=== PATIENT | male | born 1940 | race Caucasian/White ===

== ENCOUNTER 2018-01-12 09:14 | Outpatient (CLI) | payer MEDICARE, BC ==
--- NOTE | 2018-01-12 13:51 | PET ---
PET CT: HISTORY: 77-year-old male with metastatic melanoma, metastatic to right upper back. Status post radical excisi on including latissimus muscle strip with a 2 cm margin on 12/23/17. Patient had an initial melanoma of the back in 2006. 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 Exam requested for staging/restaging. TECHNIQUE: PET scanning with CT attenuation correction of the whole body was performed from the vertex through t he feet following the intravenous administration of 11 mCi [id number] in the right antecubital fossa. Im aging was performed after an uptake interval of 49 minutes. COMPARISON: None. FINDINGS: There are multiple foci of increased FDG localization in the liver with a SUV of 7 in the medial segm ent of the left lobe and SUV of 5 in the posterior segment of the right lobe. There is a focal hypermetabolic lesion in the right side of the sacrum with a SUV of 10. No jayda hypermetabolism is seen in the neck, chest, axilla, abdomen, pelvis, inguinal or popliteal r egions. No hypermetabolic pulmonary nodules or adrenal lesions are seen. The 7.0 mm pulmonary nodule in the left upper lobe demonstrates no abnormal FDG localization and has a SUV of 0.8. The CT scan used for attenuation correction demonstrates no evidence of pleural effusions or ascites. Cholelithiasis and left renal cyst are present. There is physiologic activity in the brain, GI and tracts. IMPRESSION: Hepatic and osseous metastases. POS: LISANDRA
== END 2018-01-12 09:15 | disposition home or self-care (01) ==
LOC: PET 09:14
PROVIDERS: ATTEND Surgery Plastic and Reconstructive Surgery
DX: C43.9 Malignant melanoma of skin, unspecified (principal); C78.7 Secondary malignant neoplasm of liver and intrahepatic bile duct; C79.51 Secondary malignant neoplasm of bone
CPT/HCPCS: 78816; A9552